=== PATIENT | female | born 1990 | race African-American/Black ===

== ENCOUNTER 2021-10-20 14:36 | Emergency (ER) | payer MEDICAID, OTHER ==
[~2021-10-20] VITALS: Ht 154.9 cm; Wt 65.0 kg
[2021-10-20] MEDS ORDERED: LIDOCAINE HCL/PF 1% 10 MG/ML 5ML VIAL INFIL ONE (16:30)
[2021-10-20] MEDS ORDERED: BACITRACIN ZINC OINT UDPKT TOP ONE (16:30)
[2021-10-20] MEDS ORDERED: DOXY100C5 MT (17:52)
[2021-10-20] MEDS ORDERED: NAPR-681 MT (17:52)
[2021-10-20 18:11] VITALS: BP 125/78
== END 2021-10-20 18:10 | disposition home or self-care (01) ==
LOC: ER 14:36
DX: R19.09 Other intra-abdominal and pelvic swelling, mass and lump (principal)
CPT/HCPCS: 10060; 99282; J3490